=== PATIENT | female | born 1980 | race Two or more races ===

== ENCOUNTER 2019-03-14 12:55 | Emergency (ER) | payer MEDICAID, OTHER ==
[~2019-03-14] VITALS: Ht 165.1 cm; Wt 56.7 kg
[2019-03-14 13:05] VITALS: BP 133/97
[2019-03-14 17:58] LABS: Urine Bacteria NONE SEEN /hpf (None Seen); Urine Blood 2+ /uL (Negative); Urine Specific Gravity 1.016 (1.001-1.035); Urine WBC 4 /hpf (0 - 5)
== END 2019-03-14 19:46 | disposition home or self-care (01) ==
LOC: ER 12:55
DX: N39.0 Urinary tract infection, site not specified (principal); F17.210 Nicotine dependence, cigarettes, uncomplicated
CPT/HCPCS: 81001